=== PATIENT | female | born 2000 | race Caucasian/White ===

== ENCOUNTER 2019-11-05 15:59 | Outpatient (CLI) | payer BC, OTHER | END 2019-11-05 16:00 | disposition home or self-care (01) | LOC: LAB 15:59 | PROVIDERS: ATTEND Family Medicine | DX: Z11.59 Encounter for screening for other viral diseases (principal) | CPT/HCPCS: 36415; 86317 ==

== ENCOUNTER 2020-05-14 15:43 | Outpatient (CLI) | payer OTHER | END 2020-05-14 15:44 | disposition home or self-care (01) | LOC: LAB 15:43 | DX: Z11.1 Encounter for screening for respiratory tuberculosis (principal) | CPT/HCPCS: 36415; 81599; 86480 ==